=== PATIENT | male | born 1935 | race Caucasian/White ===

== ENCOUNTER 2020-10-14 14:36 | Inpatient (IN) | payer MEDICARE ==
[~2020-10-14] VITALS: Ht 162.6 cm; Wt 69.4 kg
[2020-10-14 15:13] LABS: BASOPHILS % 0.4 % (0.0-1.0); EOSINOPHILS # (AUTO) 0.2 (0.0-0.4); EOSINOPHILS % 2.6 % (0.0-6.0); HEMATOCRIT 29.6 % (38.2-49.6); LYMPHOCYTES # (AUTO) 1.3 (1.0-3.2); LYMPHOCYTES % 17.5 % (18.0-39.1); MEAN CORPUSCULAR HEMOGLOBIN 32.5 pg (28-32); MEAN CORPUSCULAR HGB CONC 33.8 g/dL (31-35); MEAN CORPUSCULAR VOLUME 96.1 fL (81-99); MONOCYTES # (AUTO) 0.6 (0.2-0.8); MONOCYTES % 8.7 % (4.4-11.3); NEUTROPHILS # (AUTO) 5.1 (2.1-6.9); NEUTROPHILS % 70.4 % (38.7-80.0); PLATELET COUNT 237 x10e3/uL (140-360); RED BLOOD COUNT 3.08 x10e6/uL (4.3-5.7); RED CELL DISTRIBUTION WIDTH 13.3 % (11.7-14.4)
[2020-10-14 16:18] LABS: ALBUMIN 3.5 g/dL (3.5-5.0); ALBUMIN/GLOBULIN RATIO 1.3 (0.8-2.0); ANION GAP 10.8 mmol/L (8-16); CALCIUM 8.5 mg/dL (8.4-10.2); CREATININE, SERUM 2.6 mg/dL (0.72-1.25)
[2020-10-14 16:19] LABS: POTASSIUM 5.8 mmol/L (3.5-5.1)
[2020-10-14 16:26] LABS: CREATINE KINASE MB 6.2 ng/mL (0-5.0)
[2020-10-14 17:48] VITALS: BP 144/65
[2020-10-14 20:00] VITALS: BP 144/65
[2020-10-14] MEDS ORDERED: SOD POLYSTYRENE SULFONATE SUSP 15 GM/60 ML BTL PO ONE (20:00)
[2020-10-14] MEDS ORDERED: ACETAMINOPHEN 325 MG TAB PO PRN (20:00)
[2020-10-14] MEDS ORDERED: ONDANSETRON HCL INJ 2MG/ML 2ML 2 MG/ML VIAL IV PRN (20:00)
[2020-10-14] MEDS ORDERED: HYDRALAZINE HCL 20 MG/ML VIAL IV PRN (20:00)
[2020-10-14 20:06] VITALS: BP 147/67
[2020-10-14] MEDS ORDERED: DEXTROSE 50% SYRINGE 50 ML IV PRN (20:15)
[2020-10-14] MEDS ORDERED: VITAMIN E 1000 UNIT PO (20:40)
[2020-10-14] MEDS ORDERED: PRESERVISION A1 EAC2 PO (20:40)
[2020-10-14] MEDS ORDERED: IRON TABLET PO (20:40)
[2020-10-14] MEDS ORDERED: IBESARTAN (20:40)
[2020-10-14] MEDS ORDERED: ASPIRIN EC81 MG PO (20:40)
[2020-10-14] MEDS ORDERED: CLOPIDOGREL75 MG PO (20:40)
[2020-10-14] MEDS ORDERED: SYMBICORT 16010.2 GM INH (20:40)
[2020-10-14] MEDS ORDERED: [UNRECOGNIZED DRUG - OTHER] PO (20:40)
[2020-10-14] MEDS ORDERED: VITAMIN D PO (20:40)
[2020-10-14] MEDS ORDERED: SPIRIVA18 MCG INH (20:40)
[2020-10-14] MEDS ORDERED: TRAZADONE PO (20:40)
[2020-10-14] MEDS ORDERED: TROSPIUM CHLORI20 MG PO (20:40)
[2020-10-14] MEDS ORDERED: SERTRALINE HCL50 MG PO (20:40)
[2020-10-14] MEDS ORDERED: ABUTEROL IH (20:40)
[2020-10-14] MEDS ORDERED: ALBUTEROL/IPRATROPIUM 3 ML NEB NEB PRN (20:45)
[2020-10-14] MEDS ORDERED: TRAZODONE HCL 50 MG TAB PO SCH (21:00)
[2020-10-14] MEDS: INSULIN REGULAR, HUMAN 100 UNIT/1 ML 3ML VIAL SQ SCH (21:00)
[2020-10-14] MEDS: SODIUM CHLORIDE 0.9% 1000ML 1,000 ML IV SCH (21:09)
[2020-10-14] MEDS: SIMVASTATIN 40 MG TAB PO SCH (23:29)
[2020-10-15] VITALS (7 sets, daily range): BP systolic 97–149; BP diastolic 53–97
[2020-10-15 02:14] LABS: CREATINE KINASE MB 4.5 ng/mL (0-5.0)
[2020-10-15 06:20] LABS: BASOPHILS # (AUTO) 0.1 (0.0-0.1); BASOPHILS % 0.9 % (0.0-1.0); EOSINOPHILS # (AUTO) 0.4 (0.0-0.4); EOSINOPHILS % 5.2 % (0.0-6.0); HEMATOCRIT 31.6 % (38.2-49.6); HEMOGLOBIN 9.9 g/dL (14.0-18.0); LYMPHOCYTES # (AUTO) 1.6 (1.0-3.2); LYMPHOCYTES % 20.9 % (18.0-39.1); MEAN CORPUSCULAR HEMOGLOBIN 30.4 pg (28-32); MEAN CORPUSCULAR HGB CONC 31.3 g/dL (31-35); MEAN CORPUSCULAR VOLUME 96.9 fL (81-99); MONOCYTES # (AUTO) 0.8 (0.2-0.8); MONOCYTES % 10.4 % (4.4-11.3); NEUTROPHILS # (AUTO) 4.6 (2.1-6.9); NEUTROPHILS % 62.2 % (38.7-80.0); PLATELET COUNT 180 x10e3/uL (140-360); RED BLOOD COUNT 3.26 x10e6/uL (4.3-5.7); RED CELL DISTRIBUTION WIDTH 13.1 % (11.7-14.4)
[2020-10-15] MEDS: SODIUM CHLORIDE 0.9% 1000ML 1,000 ML IV SCH ×2 (06:27→16:26)
[2020-10-15 06:43] LABS: CALCIUM 7.8 mg/dL (8.4-10.2); CREATININE, SERUM 1.95 mg/dL (0.72-1.25)
[2020-10-15] MEDS: INSULIN REGULAR, HUMAN 100 UNIT/1 ML 3ML VIAL SQ SCH ×4 (07:30→21:00)
[2020-10-15] MEDS: ASPIRIN 81 MG ENTERIC COATED PO SCH (10:00)
[2020-10-15 10:48] LABS: CLARITY,URINE CLEAR (CLEAR); COLOR,URINE YELLOW (YELLOW); KETONES,URINE NEGATIVE (NEGATIVE); LEUKOCYTE ESTERASE ,URINE NEGATIVE (NEGATIVE); NITRITE,URINE NEGATIVE (NEGATIVE); PROTEIN,URINE DIPSTICK NEGATIVE (NEGATIVE); URINE UROBILINOGEN 0.2 mg/dL (0.2 - 1)
[2020-10-15 10:56] LABS: BACTERIA,URINE RARE /HPF; EPITHELIAL CELLS,URINE RARE /LPF; RBC,URINE 0-5 /HPF (0-5); WBC,URINE (MAN) 0-5 /HPF (0-5)
[2020-10-15] MEDS ORDERED: GLIMEPIRIDE2 MG PO (12:50)
[2020-10-15 14:54] LABS: CREATININE,URINE RANDOM 47.29 mg/dL (63-166)
[2020-10-15] MEDS ORDERED: TRAZODONE HCL 50 MG TAB PO PRN (15:30)
[2020-10-15 15:39] LABS: TOTAL PROTEIN, URINE < 6.8 mg/dL (1-14)
[2020-10-15] MEDS ORDERED: ENOXAPARIN 30 MG/0.3 ML SYR SC SCH (17:00)
[2020-10-15] MEDS: BUDESONIDE/FORMOTEROL 160/4.5MCG INHALER INH SCH (19:00)
[2020-10-15] MEDS: SIMVASTATIN 40 MG TAB PO SCH (22:36)
[2020-10-16] VITALS: BP 135/61
[2020-10-16] MEDS: SODIUM CHLORIDE 0.9% 1000ML 1,000 ML IV SCH ×2 (02:00→06:38)
[2020-10-16 04:00] VITALS: BP 123/67
[2020-10-16] MEDS ORDERED: TIOTROPIUM 18 MCG INH POWDER INH SCH (06:00)
[2020-10-16 06:29] LABS: ALBUMIN 3.2 g/dL (3.5-5.0); ALBUMIN/GLOBULIN RATIO 1.3 (0.8-2.0); ANION GAP 13.5 mmol/L (8-16); CALCIUM 7.8 mg/dL (8.4-10.2); CREATININE, SERUM 1.4 mg/dL (0.72-1.25); POTASSIUM 4.5 mmol/L (3.5-5.1)
[2020-10-16] MEDS: INSULIN REGULAR, HUMAN 100 UNIT/1 ML 3ML VIAL SQ SCH ×2 (07:30→11:56)
[2020-10-16 08:40] VITALS: BP 153/80
[2020-10-16 09:00] VITALS: BP 153/80
[2020-10-16] MEDS ORDERED: FERROUS SULFATE 325 MG TAB PO SCH (09:00)
[2020-10-16] MEDS ORDERED: CLOPIDOGREL BISULFATE 75 MG TAB PO SCH (09:00)
[2020-10-16] MEDS ORDERED: ASPIRIN 81 MG ENTERIC COATED PO SCH (09:00)
[2020-10-16] MEDS ORDERED: SERTRALINE HCL 50 MG TAB PO SCH (09:00)
[2020-10-16] MEDS: ASPIRIN 81 MG ENTERIC COATED PO SCH (09:09)
[2020-10-16] MEDS: BUDESONIDE/FORMOTEROL 160/4.5MCG INHALER INH SCH (09:09)
== END 2020-10-16 16:08 | disposition home or self-care (01) | DRG 683 ==
LOC: ER 14:54 → ERHOLD 17:41 → MED/SURG 18:06
PROVIDERS: ADMIT Internal Medicine; ATTEND Internal Medicine
DX: N17.9 Acute kidney failure, unspecified (principal); E87.2 Acidosis; E11.22 Type 2 diabetes mellitus with diabetic chronic kidney disease; I12.9 Hypertensive chronic kidney disease with stage 1 through stage 4 chronic kidney disease, or unspecified chronic kidney disease; N18.30 Chronic kidney disease, stage 3 unspecified; Z86.73 Personal history of transient ischemic attack (TIA), and cerebral infarction without residual deficits; F03.90 Unspecified dementia, unspecified severity, without behavioral disturbance, psychotic disturbance, mood disturbance, and anxiety; J44.9 Chronic obstructive pulmonary disease, unspecified; E87.5 Hyperkalemia; Z20.822 Contact with and (suspected) exposure to COVID-19; Z85.46 Personal history of malignant neoplasm of prostate; D64.9 Anemia, unspecified; M47.9 Spondylosis, unspecified; E86.0 Dehydration
CPT/HCPCS: 36415; 72100; 76770; 80048; 80053; 81001; 82550; 82553; 82570; 82948; 83880; 84156; 84484; 85025; 93005; 99284; J1650; J1817; J7030; U0002